=== PATIENT | female | born 1955 | race Caucasian/White ===

== ENCOUNTER → 2024-02-05 13:35 | Outpatient (REF) | payer OTHER, SELFPAY | LOC: RCS 13:35 | PROVIDERS: ATTENDING PHYSICIAN Internal Medicine Cardiovascular Disease; FAMILY PHYSICIAN Family Medicine | DX: I34.0 Nonrheumatic mitral (valve) insufficiency (principal) | CPT/HCPCS: 93306 ==

== ENCOUNTER 2024-03-10 06:08 | Day surgery (SDC) | payer OTHER, SELFPAY ==
[2024-03-10] VITALS (8 sets, daily range): BP systolic 153–180; BP diastolic 76–101; BMI 47.0
[2024-03-10 06:51] LABS: Glucose - Point of Care 101 mg/dl (70-99)
--- NOTE | 2024-03-10 08:30 | ITS.CL.PN ---
Plc Engineer - Procedure Note
Procedure
Procedure Note:
RIGHT HEART CATHETERIZATION
Date of Procedure: 03/10/2024
Referring: Dr. Michael Cerda
INDICATION: pulmonary hypertension
ACCESS: 5F right basilic vein
CATHETERS: 5F SGC
HEMODYNAMICS
RA: 21 mmHg
RV: 75/7 (EDP 21) mmHg
PA: 78/30 (mean 46) mmHg
PCWP: 27 (v-waves to 40) mmHg
CO/CI: 3.59/1.57 L/min/m2
SVR: 2006 dyn*-5
PVR: 5.3 Wood Units
RADIATION
Radiation (mGy): 22.92
DAP (cm2.Gy): 3.3704
Fluoroscopy time (minutes): 1.2
CONCLUSION:
1. 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
RECOMMENDATIONS:
1. Expectant management after right heart catheterization via brachial vein approach.
2. Medical management of heart failure and pulmonary hypertension. Consider re-evaluation of residual pHTN after adequate diuresis.
Copy to: Dr. Michael Cerda
Benjamin Kline MD, PhD
[2024-03-10 08:52] LABS: Glucose - Point of Care 93 mg/dl (70-99)
== END 2024-03-10 10:27 | disposition home or self-care (01) ==
LOC: CATH 06:08
PROVIDERS: ATTENDING PHYSICIAN Student in an Organized Health Care Education/Training Program; FAMILY PHYSICIAN Nurse Practitioner Family; OTHER PHYSICIAN Internal Medicine Cardiovascular Disease
DX: I35.0 Nonrheumatic aortic (valve) stenosis (principal); I08.3 Combined rheumatic disorders of mitral, aortic and tricuspid valves; I27.29 Other secondary pulmonary hypertension; E11.9 Type 2 diabetes mellitus without complications; Z79.01 Long term (current) use of anticoagulants; Z79.82 Long term (current) use of aspirin; Z79.84 Long term (current) use of oral hypoglycemic drugs
CPT/HCPCS: 82962; 93451; C1894

== ENCOUNTER 2024-04-03 14:05 | Inpatient (IN) | payer OTHER, SELFPAY ==
[2024-04-03] VITALS (17 sets, daily range): BP systolic 100–164; BP diastolic 69–100; PULSE 96–106; BMI 45.6; BMI 44.3
[2024-04-03 12:30] LABS: % Basophils 0.5 % (0-2); % Eosinophils 2.9 % (0-6); % Immature Granulocytes 0.7 % (0-0.5); % Monocytes 6.6 % (1.7-9.3); % Neutrophils 75.3 % (42.2-75.2); Absolute Eosinophils 0.2 10^3/uL (0-0.7); Absolute Lymphocytes 0.8 10^3/uL (1.2-3.4); Absolute Monocytes 0.4 10^3/uL (0.1-0.6); Absolute Neutrophils 4.4 10^3/uL (1.4-6.5); Hematocrit 23.9 % (37.0-47.0); Hemoglobin 7.6 g/dL (12.0-16.0); Mean Corp Hgb Conc. 31.8 g/dL (33.0-37.0); Mean Corpuscular Hgb 27.4 pg (27.0-31.0); Mean Corpuscular Volume 86.3 fL (81.0-99.0); Mean Platelet Volume 10.5 fL (7.4-10.4); Nucleated Red Blood Cells % 0 %; Platelet Count 222 10^3/uL (130-400); Red Blood Cell Count 2.77 10^6/uL (4.20-5.40); Red Cell Dist. Width 14.6 % (11.5-14.5); White Blood Cell Count 5.8 10^3/uL (4.8-10.8)
[2024-04-03 12:40] LABS: INR 2.09; PT 23.7 Sec (11.4-14.6)
[2024-04-03 12:47] LABS: ALT (SGPT) < 10 U/L (0-35); AST (SGOT) 14 U/L (14-36); Alkaline Phosphatase 39 U/L (38-126); Blood Urea Nitrogen 38 mg/dl (7-17); Calcium 9.3 mg/dl (8.4-10.2); Carbon Dioxide 24 mmol/L (22-30); Chloride 104 mmol/L (98-107); Glucose 148 mg/dl (70-99); Potassium 4.4 mmol/L (3.5-5.1); Sodium 144 mmol/L (135-145); Total Bilirubin 0.2 mg/dl (0.2-1.3); Total Protein 6.8 g/dl (6.3-8.2); eGFR 53.72
--- NOTE | 2024-04-03 12:54 | ED.GENMED ---
History of Present Illness
General
Chief Complaint: Abnormal Lab Value
Time Seen by Provider: 04/03/24 12:54
History of Present Illness
History of Present Illness:
TIME OF INITIAL ENCOUNTER:
HPI: Patient presents due to abnormal blood work. She had blood work due to reporting blood in her stool recently. Yesterday, the patient had a hemoglobin drawn and was found to be 7.8. She is on Xarelto. Otherwise, she feels fine. She thinks
that her stool was brown with streaks of blood.
EXAM:
GENERAL: Well appearing in no distress
HEENT: Moist oral mucosa
CARDIOVASCULAR: 2 out of 6 systolic ejection murmur in the left upper sternal border, normal heart rate, irregular rhythm, No chest wall tenderness
PULMONARY: No respiratory distress, breath sounds are clear and equal
ABDOMEN: Soft with no peritoneal signs, no tenderness, elevated BMI, briskly heme positive maroon to melanotic stool, no external hemorrhoids
NEUROLOGIC: Good strength all extremities, no coordination deficits
PSYCHIATRIC: Appropriate mental status, normal insight and judgement
EXTREMITIES: Nontender, no edema, moves all extremities equally
SKIN: No rash, no lesions, appears somewhat pale but did not feel that this is any significant difference
NUMBER AND COMPLEXITY OF PROBLEMS ADDRESSED AT THE ENCOUNTER
� Chronic conditions affecting care: Diabetes
� Acute Exacerbation and/or Progression of Chronic Illness: This is an acute problem
� Differential Diagnosis includes: Upper GI bleed, lower GI bleed, coagulopathy, anemia
AMOUNT AND/OR COMPLEXITY OF DATA TO BE REVIEWED AND ANALYZED
� I performed an independent evaluation of and my interpretation is:
EKG: A-fib 79, nonspecific ST abnormality
CT:
X-rays:
Laboratory Studies: White count is normal, hemoglobin is 7.6 with no old to compare, BUN is 38, creatinine 1.1
Other:
� Review of other/old records: I reviewed records, the patient had a right heart cath earlier this month that was consistent with heart failure and pulmonary hypertension; echo from 2022 showed mild aortic stenosis, mild to
moderate mitral regurgitation, and mild LVH with normal wall function. This was obtained due to persistent A-fib.
� Clinical information was obtained by an independent historian: I spoke to the at bedside
� Prescriptions/Medications Considered but not given: Considered Kcentra however the patient is currently hemodynamically stable
� Further testing considered but not performed:
RISK OF COMPLICATIONS AND/OR MORBIDITY OR MORTALITY OF PATIENT MANAGEMENT
� Social determinants of health affecting care: Lives at home
� Discussion with other providers: 1:20 PM: I notified hospitalist for admission as well as on-call GI
� Escalation of care including admission/observation vs risk of discharge considered: Given heme positive stool with rapid drop in hemoglobin, will plan admission to the hospital. Protonix IV also given.
ANY OTHER UPDATES:
1:10 PM: I spoke to a nurse over at her primary care's office who indicates that her hemoglobin on 02/12/2024 was 11.5. The patient tells me that when she was living in a little a few years ago, she had a hemoglobin of 3 and had multiple
transfusions of blood. At that time she had an abnormal endoscopy but she is not sure of what exactly happened at that time. The nurse at her current primary care office is looking through the records and trying to fax us something if they find
something.
1:20 PM: Patient signed informed consent to receive blood
Phy Exam
Physical Exam
Physical Exam:
See HPI
Course
Orders/Labs/Results
Orders:
Orders
04/03/24 12:05
Electrocardiogram (*1) Urgent
Reason for Study: Other
Other Reason for Exam: low hgb
04/03/24 12:06
EKG- Treatment ONCE
04/03/24 12:12
Type+Screen Urgent
Complete Blood Count/With Diff Urgent
Comprehensive Metabolic Panel Urgent
Ferritin Urgent
Folate Urgent
Iron Urgent
Comment: B12,FERRITIN,FOLATE,IRON ADDED ON BY FLOOR 2PM 04-03-24
PT/INR [Prothrombin Time] Urgent
Total Iron Binding Urgent
Vitamin B12 Urgent
04/03/24 13:09
Pantoprazole [Protonix IV] 80 mg IV NOW STA
04/03/24 13:11
* Blood Bank Products Urgent
Blood Bank Products: *Packed RBC Leuko(PRBC's)
Quantity: 1
Transfuse Today: Yes
Reason: Anemia
04/03/24 13:13
ABO2 Urgent
BBK Wristband Number:
Associate notified that ABO2 has been ordered: [id number]
Date: 04/03/24
Time: 12:33
Accordion Maker ID: [id number]
04/03/24 13:46
GASTROINTESTINAL CONSULT Routine
Consulting Provider: Monico Murphy
Was physician already notified: Yes
04/03/24 13:47
Admit/Transfer Patient As Directed
Co-Sign Provider:
Level of Care: Inpatient admission
Assign to:: Telemetry
Physician / Group: jose
Diagnosis: GI Bleed
Reason for Telemetry: Arrhythmia
Date to Stop Telemetry: 04/06/24
Time to Stop Telemetry: 11:00
Reason for Hospitalization: GI bleed
Expected length of stay greater than two midnights?: Yes
ELOS- Estimated Length of Stay in days: 3
I certify the patient meets the requirements for IP care: Yes
PRN Pain Medication Management As Directed
May give lesser potent ordered pain med per pt: Yes
preference::
Protocol:: Medication orders for pain may be administered in a
manner that supports deferring to patient preference
when the pt is:
- Requesting an ordered lesser potent pain medication.
Least to most potent pain medications are defined
as: acetaminophen < NSAID < tramadol < opioids
(morphine, oxycodone, hydromorphone).
- Requesting a lesser dose of the same medication IF
ORDERED.
- Requesting a less intrusive route of administration
if both routes are prescribed by the provider (PO <
IV).
04/03/24 13:48
Code Status As Directed
Resuscitation Status: Full Code
04/03/24 13:56
Add On- LAB Stat
Tests Added?: b12,ferritin, folate, iron
04/06/24 11:00
DC Protocol for Telemetry ONCE
Abnormal Lab Results
04/03/24
12:12
RBC 2.77 L 10^6/uL
(4.20-5.40)
Hgb 7.6 L g/dL
(12.0-16.0)
Hct 23.9 L %
(37.0-47.0)
MCHC 31.8 L g/dL
(33.0-37.0)
RDW 14.6 H %
(11.5-14.5)
MPV 10.5 H fL
(7.4-10.4)
Absolute Lymphs (auto) 0.8 L 10^3/uL
(1.2-3.4)
Immature Gran % 0.7 H %
(0-0.5)
Neutrophils % 75.3 H %
(42.2-75.2)
Lymphocytes % 14.0 L %
(20.5-51.1)
PT 23.7 H Sec
(11.4-14.6)
BUN 38 H mg/dl
(7-17)
Creatinine 1.1 H mg/dL
(0.6-1.0)
Glucose 148 H mg/dl
(70-99)
Crossmatch IS Only See Detail
04/03/24 12:12
04/03/24 12:12
Vital Signs
Initial and Last Documented VS:
Initial Vital Signs
Temp Pulse Resp BP Pulse Ox
98.2 F 77 16 100/75 100
04/03/24 12:01 04/03/24 12:01 04/03/24 12:01 04/03/24 12:01 04/03/24 12:01
Last Documented Vital Signs
Temp Pulse Resp BP Pulse Ox
98.2 F 71 18 135/100 100
04/03/24 14:53 04/03/24 14:53 04/03/24 14:53 04/03/24 14:53 04/03/24 12:01
*Critical Care Note
Total Time (30-74mins, 75-104mins- exclusive of procedures): Not Applicable
ED Attending Note
-
Portions of this chart may have been created with voice recognition software.� Occasional wrong word or��sound alike� substitutions may have occurred due to the inherent limitations of voice recognition software.
Discharge Plan
Departure
Patient Disposition: Admit
Date of Disposition: 04/03/24
Time of Disposition: 13:15
Presentation/result/management discussed w/ accepting MD/DO: Hospitalist
Discharge Problem:
Acute upper gastrointestinal bleeding
Interventions
Interventions:
*Risk Screen - Suicide Last Done: 04/03/24 12:01
*Neglect/Abuse Screening Last Done: 04/03/24 12:01
ED- Fall Risk Assessment Last Done: 04/03/24 13:23
*ED COVID-19 Vaccine History Last Done: 04/03/24 13:23
--- NOTE | 2024-04-03 13:16 | HPS.HSE ---
Family Physician
-
Family Physician:
Chief Complaint
-
blood in the stool
History of Present Illness
69-year-old with past medical history of hypothyroidism, type 2 diabetes, hypertension, anxiety, anemia, A-fib, and depression,pulmonary htn presented to us with patient presents due to abnormal blood work. patient stated streaks of bright blood in
the stool for past one week. she had an blood work done yesterday with impression of hgb 7.8. denied abdominal pain,n,v.d. denied dizzy, chest pain, sob. denied GORDILLO or syncopal episode. denied dysuria or hematuria. she is on Xarelto for past two
weeks. patient under lots of stress.
she was noted to have bleeding ulcer in 2019 which was cauterized back in 2019
she was also noted to have pulmonary HTN for which she was took of Valsartan and imitated on Diuretics
on arrival hgb of 7.6. giving one unit of blood as well as PPI. admitting for further management.
Medical History
Past Medical History
Past Medical History: Reports Other
Additional Past Medical History:
Hypothyroidism
Type 2 diabetes
Hypertension
Anxiety
Anemia
A-fib
Depression
Peptic ulcer disease
Past Surgical History: Reports Other
Additional Past Surgical History:
History of gastric bypass surgery
Tonsillectomy
Right total hip replacement
Cardioversion
Social History
Tobacco: Non-smoker
Alcohol: None
Drug: None
Personal:
Living: With Family
Family History
Family History: Not pertinent
Allergies / Home Medications
Allergies reflects when Allergies were last updated in [facility].
Home Medications with original date entered in [facility]
Allergy/Medication List:
Allergies
Allergy/AdvReac Type Severity Reaction Status Date / Time
erythromycin base Allergy Severe Swelling Verified 04/03/24 12:04
Home Medications
carvedilol 25 mg tablet (Coreg) 25 mg PO BID 03/10/24
cholecalciferol (vitamin D3) 50 mcg (2,000 unit) tablet (Vitamin D3) 50 mcg PO DAILY 03/10/24
hydroxyzine HCl 10 mg tablet 10 mg PO QPM 03/10/24
levothyroxine 100 mcg tablet 100 mcg PO DAILY 03/10/24
metformin 750 mg tablet,extended release 24 hr 750 mg PO DAILY 03/10/24
pantoprazole 40 mg tablet,delayed release 40 mg PO DAILY 03/10/24
rivaroxaban 20 mg tablet (Xarelto) 20 mg PO QPM 03/10/24
sertraline 100 mg tablet (Zoloft) 100 mg PO DAILY 03/10/24
acetaminophen 325 mg tablet (Tylenol) 650 mg PO QIDPRN PRN mild pain 04/03/24
cyanocobalamin (vitamin B-12) 25 mcg/actuation nasal spray 25 mcg intranasal CHADWICK 04/03/24
ergocalciferol (vitamin D2) 1,250 mcg (50,000 unit) capsule 1,250 mcg PO SA 04/03/24
ferrous sulfate 325 mg (65 mg iron) tablet 325 mg PO DAILY 04/03/24
fluticasone propionate 50 mcg/actuation nasal spray,suspension 1 spray intranasal DAILY 04/03/24
furosemide 40 mg tablet (Lasix) 40 mg PO DAILY 04/03/24
magnesium oxide 400 mg PO DAILY 04/03/24
montelukast 10 mg tablet (Singulair) 10 mg PO DAILY 04/03/24
Review of Systems
-
Constitutional: Reports No Symptoms
EENT: Reports No Symptoms
Respiratory: Reports No Symptoms
Cardiac: Reports No Symptoms
Abdomen/GI: Reports Bloody Stools
: Reports No Symptoms
Musculoskeletal: Reports No Symptoms
Skin: Reports No Symptoms
Neurological: Reports No Symptoms
Endocrine: Reports No Symptoms
Hematologic/Lymphatic: Reports No Symptoms
Psych: Reports No Symptoms
Physical Exam
Vital Signs
Vital Signs
Temp Pulse Resp BP Pulse Ox
98.2 F 77 16 100/75 100
04/03/24 12:01 04/03/24 12:01 04/03/24 12:01 04/03/24 12:01 04/03/24 12:01
Physical Exam
General: Well Developed, Well Nourished and No Apparent Distress
HEENT: NormoCephalic, Moist mucous membranes and Atraumatic
Respiratory: Clear
Cardiac: S1/S2 and Regular Rhythm; No Murmur or Rub
GI: Soft, Non Tender, Non Distended and Normal Bowel Sounds; No Organomegaly
Rectal: Deferred by Provider
Musculoskeletal: No Clubbing, No Cyanosis and No Edema
Skin: No Rash
Neuro: Nonfocal/grossly intact
Psych: Calm
Laboratory Results
-
04/03/24 12:12
04/03/24 12:12
Laboratory Results
PT 23.7 Sec (11.4-14.6) H 04/03/24 12:12
INR 2.09 04/03/24 12:12
Total Bilirubin 0.2 mg/dl (0.2-1.3) 04/03/24 12:12
AST 14 U/L (14-36) 04/03/24 12:12
ALT < 10 U/L (0-35) 04/03/24 12:12
Alkaline Phosphatase 39 U/L (38-126) 04/03/24 12:12
Data Reviewed
-
Lab Data: Labs Reviewed by me
Impression/Plan
-
# GI bleed on Xarelto
# Acute blood loss anemia
-Hemoglobin 7. 6
-IV Protonix and 1 unit of blood
-Stool heme positive
-Clear liquid diet for now, npo after MN
-GI consulted
-Hold Xarelto
# Acute kidney injury likely from blood loss anemia/GI bleed
-Creatinine 1.1
-Monitor BMP
# Permanent atrial fibrillation
-EKG with A-fib
-Coreg continued with hold parameters
#pulmonary HTN
-Lasix held
#hypothyroidism
-levothyroxine continued
#type 2 Dm
-hold metformin
-sliding scale
#depression
-Zoloft continued
#DVT prophylaxis
-scd
#CODE status
-full code
[2024-04-03] MEDS: PROTONIX IV 80 MG IV (13:20)
--- NOTE | 2024-04-03 13:56 | W.PN.UPDATE ---
Update Note
Progress Note Update
This is an addendum to the H&P written by Brook Ralph on 04/03/2024. Patient seen and examined independently with COMMUNITY EDUCATION SPECIALIST.
69-year-old female past medical history of bleeding peptic ulcer status post endoscopy in 2019 in [place], permanent atrial fibrillation on Eliquis, pulmonary hypertension, hypothyroidism, type 2 diabetes, hypertension, depression, anxiety,
presenting with anemia on outpatient labs. She has been having bright red blood in her stools for the past week.
Hemoglobin 7.6, was told her hemoglobin is previously normal. Endoscopy report was requested from primary but he did not have access to the report.
No active bleeding. Hemodynamically stable. 1 unit of blood transfusion. Clear liquid diet, n.p.o. past midnight, Protonix 40 IV twice daily, check iron studies, B12 and folate. Diet consulted. Hold Lasix which was started today for pulmonary
hypertension.
--- NOTE | 2024-04-03 14:02 | CON.GI ---
Addendum entered and electronically signed by Monico Murphy MD 04/03/24 17:00:
I saw and examined the patient.
The UTILITY WORKER WOOLEN MILL's note was reviewed and I agree with the note.
69yo with recently diagnosed pulm HTN< hx afib on Xarelto with prior cardioversion, NIDDM, hypothyroidism, depression. panic attacks, gastric bypass, prior GI bleeding 2019 with PUD with hbg 3 requiring 5 units PRBC's at that time , iron
deficiency with admission today with abnormal labs. She also report recent blood in stool. On admission hbg was 7.6 with BUN 38 was and per ER prior hbg 02/12/24 noted 11.5. ER rectal with heme + maroon to melanotic stool. In review with
patient she admits to seeing some red blood in stool last week with blood around stool. EGD 2019 with bleeding. No hx colonoscopy with cologuard x 2 neg last 2 years. No recent falls, vaginal bleeding or urinary bleeding. Denies NSAID use. Pt
on daily iron and PPI prior to admission.
-Acute on chronic anemia
-Rectal bleeding with dark stools
-Prior history of peptic ulcer disease
-History of gastric bypass surgery
-A-fib on Xarelto last dose 04/02/2024
plan
Patient is currently getting transfusion
Continue monitor H&H
Continue Protonix 40 mg twice daily
Clear liquid diet. N.p.o. after midnight
Will discuss with Dr. Unger about EGD tomorrow versus Sunday (Xarelto washout)
Patient would like to hold off on inpatient colonoscopy. She would like to have it as outpatient with Dr. Garcia
Original Note:
Consultation
-
Date/Time Consultation Requested: 04/03/24 1345
Date/Time Consultation Performed: 04/03/24 1400
Requesting Provider: Rob Montoya DO
Performing Provider: MALIKA Cifuentes, Monico Murphy MD
Reason for Consultation: anemia/bleeding
Medical History
Chief Complaint / HPI
Chief Complaint: abnormal labs
History of Present Illness:
Pt is a 69yo with hx recently dx pulm HTN, afib on Xarelto with prior cardioversion, NIDDM, hypothyroidism, depression. panic attacks, gastric bypass, prior GI bleeding 2019 with PUD with hbg 3 requiring 5 units PRBC's at that time , iron
deficiency with admission today with abnormal labs. She also report recent blood in stool. On admission hbg was 7.6 with BUN 38 was and per ER prior hbg 02/12/24 noted 11.5. ER rectal with heme + maroon to melanotic stool. In review with
patient she admits to seeing some red blood in stool last week with blood around stool. She denies dysphagia, GERD, nausea, vomiting, abdominal pain, diarrhea, constipation or black stools. EGD 2019 with bleeding. No hx colonoscopy with
cologuard x 2 neg last 2 years. No recent falls, vaginal bleeding or urinary bleeding. Denies NSAID use. Pt on daily iron and PPI prior to admission.
Past Medical History
Past Medical History: Arrhythmias (afib on Xarelto), HTN, Hypothyroidism, NIDDM, Psychiatric (anxiety/panic attacks, depression) and Other (PUD with GI bleed , iron deficiency, vitamin D deficiency, pulm HTN)
Past Surgical History: Cardiac (cardioversion), Orthopedic (right THR), Tonsilectomy and Other (gastric bypass)
Social History
Tobacco: Non-Smoker
Alcohol: None
Drug: None
Personal:
Living: With Family
Employment: Retired
Family History
Family History: Other (no family hx colon CA father with PUD)
Allergies / Home Medications
Allergy/AdvReac Type Severity Reaction Status Date / Time
erythromycin base Allergy Severe Swelling Verified 04/03/24 12:04
�Medication �Instructions �Recorded
carvedilol 25 mg tablet (Coreg) 25 mg PO BID 03/10/24
cholecalciferol (vitamin D3) 50 50 mcg PO DAILY 03/10/24
mcg (2,000 unit) tablet (Vitamin
D3)
hydroxyzine HCl 10 mg tablet 10 mg PO QPM 03/10/24
levothyroxine 100 mcg tablet 100 mcg PO DAILY 03/10/24
metformin 750 mg tablet,extended 750 mg PO DAILY 03/10/24
release 24 hr
pantoprazole 40 mg tablet,delayed 40 mg PO DAILY 03/10/24
release
rivaroxaban 20 mg tablet (Xarelto) 20 mg PO QPM 03/10/24
sertraline 100 mg tablet (Zoloft) 100 mg PO DAILY 03/10/24
acetaminophen 325 mg tablet 650 mg PO QIDPRN PRN mild pain 04/03/24
(Tylenol)
cyanocobalamin (vitamin B-12) 25 25 mcg intranasal CHADWICK 04/03/24
mcg/actuation nasal spray
ergocalciferol (vitamin D2) 1,250 1,250 mcg PO SA 04/03/24
mcg (50,000 unit) capsule
ferrous sulfate 325 mg (65 mg 325 mg PO DAILY 04/03/24
iron) tablet
fluticasone propionate 50 1 spray intranasal DAILY 04/03/24
mcg/actuation nasal
spray,suspension
furosemide 40 mg tablet (Lasix) 40 mg PO DAILY 04/03/24
magnesium oxide 400 mg PO DAILY 04/03/24
montelukast 10 mg tablet 10 mg PO DAILY 04/03/24
(Singulair)
Review of Systems
-
History Source: Patient and Family
Constitutional: Reports No Symptoms
EENT: Reports No Symptoms
Respiratory: Reports No Symptoms
Cardiac: Reports No Symptoms
Abdomen/GI: Reports Bloody Stools
: Reports No Symptoms
Musculoskeletal: Reports No Symptoms
Skin: Reports No Symptoms
Neurological: Reports Weakness
Endocrine: Reports No Symptoms
Hematologic/Lymphatic: Reports Bleeding
Vital Signs
Temp Pulse Resp BP Pulse Ox
98.2 F 76 17 142/73 100
04/03/24 12:01 04/03/24 13:30 04/03/24 13:30 04/03/24 13:22 04/03/24 12:01
Physical Exam
Exam
General: Well Developed, Well Nourished, No Apparent Distress and Other (pale appearing)
HEENT: Normocephalic and Anicteric
Respiratory: Clear
Cardiac: Regular Rhythm and Murmur
GI: Soft, Non Tender and Non Distended
Rectal: Other (heme + melena/maroon stool per ER)
Musculoskeletal: No Clubbing and No Cyanosis
Skin: Warm and Dry
Neuro: Awake, Alert and AO x 3
Psych: Calm
Results
WBC 5.8 10^3/uL (4.8-10.8) 04/03/24 12:12
Hgb 7.6 g/dL (12.0-16.0) L 04/03/24 12:12
Hct 23.9 % (37.0-47.0) L 04/03/24 12:12
MCV 86.3 fL (81.0-99.0) 04/03/24 12:12
Plt Count 222 10^3/uL (130-400) 04/03/24 12:12
Absolute Neuts (auto) 4.4 10^3/uL (1.4-6.5) 04/03/24 12:12
PT 23.7 Sec (11.4-14.6) H 04/03/24 12:12
INR 2.09 04/03/24 12:12
Sodium 144 mmol/L (135-145) 04/03/24 12:12
Potassium 4.4 mmol/L (3.5-5.1) 04/03/24 12:12
Chloride 104 mmol/L (98-107) 04/03/24 12:12
Carbon Dioxide 24 mmol/L (22-30) 04/03/24 12:12
BUN 38 mg/dl (7-17) H 04/03/24 12:12
Creatinine 1.1 mg/dL (0.6-1.0) H 04/03/24 12:12
Calcium 9.3 mg/dl (8.4-10.2) 04/03/24 12:12
Total Bilirubin 0.2 mg/dl (0.2-1.3) 04/03/24 12:12
AST 14 U/L (14-36) 04/03/24 12:12
ALT < 10 U/L (0-35) 04/03/24 12:12
Alkaline Phosphatase 39 U/L (38-126) 04/03/24 12:12
Diagnostic Image Results:
Prior GI Procedures:
EGD: 2019 PUD with bleeding
Colonoscopy: none but cologuard x 2 neg last 2 years
Assessment / Plan
-
Pt is a 69yo with recently diagnosed pulm HTN< hx afib on Xarelto with prior cardioversion, NIDDM, hypothyroidism, depression. panic attacks, gastric bypass, prior GI bleeding 2019 with PUD with hbg 3 requiring 5 units PRBC's at that time , iron
deficiency with admission today with abnormal labs. She also report recent blood in stool. On admission hbg was 7.6 with BUN 38 was and per ER prior hbg 02/12/24 noted 11.5. ER rectal with heme + maroon to melanotic stool. In review with
patient she admits to seeing some red blood in stool last week with blood around stool. EGD 2019 with bleeding. No hx colonoscopy with cologuard x 2 neg last 2 years. No recent falls, vaginal bleeding or urinary bleeding. Denies NSAID use. Pt
on daily iron and PPI prior to admission.
-rectal bleeding
-anemia with drop in hbg
-hx PUD with increased bleeding and hbg 3 in 2019
-gastric bypass
-Afib on Xarelto/prior cardioversion
-murmur on exam
-mild LOUIE on admission
-recently diagnosed pulm HTN
other med problems:
-NIDDM
-hypothyroidism
-depression
-hx panic attacks
-HTN
PLAN:
Etiology of rectal bleeding and anemia related to upper GI source- PUD, anastomotic ulcer with hx bypass, ectasia vs other
t/c EGD will review timing with Dr. Murphy
Xarelto hold- last dose 04/02 11 PM
ok for clears, NPO in AM for possible EGD
for transfusion
iron 122, ferritin TIBC and % sat pending
B12/folate pending
if needed pt prefers OP colonoscopy if able
Pt request OP scope and follow up with Dr. Maldonado as spouse is her patient
-
-
Thank you for consultation and allowing me to participate in the patient's care. Please call the electronic security specialist GI physician during the after hours with any questions or concerns.
[2024-04-03 14:32] LABS: Iron 122 ug/dl (37-170)
[2024-04-03 15:15] LABS: Percent Saturation 34 % (20-50); Total Iron Binding Capacity 355 ug/dl (265-497)
[2024-04-03 16:15] LABS: Ferritin 18.8 ng/ml (11.1-264.0)
[2024-04-03 16:47] LABS: Folate 10.5 ng/ml (2.76-20); Vitamin B12 626 pg/ml (239-931)
[2024-04-03 17:48] LABS: Glucose - Point of Care 109 mg/dl (70-99)
[2024-04-03] MEDS: ATARAX 10 MG PO (18:22)
--- NOTE | 2024-04-03 18:30 | PTCARENOTE ---
Received pt from ER.Pt awake, alert and oriented x3. Pt has no c/o pain at this time. Pt VSS 100% on RA, Pt Afib on tele. Pt oriented to room, call ramos within reach, plan of care continues.
[2024-04-03] MEDS: COREG 25 MG PO (19:54)
[2024-04-03] MEDS: PROTONIX IV 40 MG IV (19:55)
[2024-04-03] MEDS: NSS (PRESERVATIVE FREE) 10 ML IV (19:55)
[2024-04-03 20:13] LABS: Hematocrit 23.2 % (37.0-47.0); Hemoglobin 7.7 g/dL (12.0-16.0)
[2024-04-03 21:46] LABS: Glucose - Point of Care 116 mg/dl (70-99)
[2024-04-04] VITALS (11 sets, daily range): BP systolic 14–153; BP diastolic 64–78
--- NOTE | 2024-04-04 01:48 | PTCARENOTE ---
1 unit PRBCs transfused without issues. No complaints at this time. Pt resting comfortably.
[2024-04-04 04:27] LABS: Hematocrit 27.8 % (37.0-47.0); Hemoglobin 9.2 g/dL (12.0-16.0); Mean Corp Hgb Conc. 33.1 g/dL (33.0-37.0); Mean Corpuscular Hgb 28.9 pg (27.0-31.0); Mean Corpuscular Volume 87.4 fL (81.0-99.0); Mean Platelet Volume 10.7 fL (7.4-10.4); Platelet Count 211 10^3/uL (130-400); Red Blood Cell Count 3.18 10^6/uL (4.20-5.40); Red Cell Dist. Width 14.4 % (11.5-14.5); White Blood Cell Count 5.5 10^3/uL (4.8-10.8)
[2024-04-04 04:50] LABS: Blood Urea Nitrogen 33 mg/dl (7-17); Calcium 9.3 mg/dl (8.4-10.2); Carbon Dioxide 24 mmol/L (22-30); Chloride 104 mmol/L (98-107); Estimated Creatinine Clearance 69 ml/min; Glucose 109 mg/dl (70-99); Sodium 143 mmol/L (135-145); eGFR > 60.00
[2024-04-04 06:08] LABS: Glucose - Point of Care 117 mg/dl (70-99)
[2024-04-04] MEDS: SYNTHROID 100 MCG PO (06:09)
[2024-04-04] MEDS: MAGNESIUM OXIDE PO (09:27)
[2024-04-04] MEDS: ZOLOFT 100 MG PO (09:28)
[2024-04-04] MEDS: SINGULAIR 10 MG PO (09:28)
[2024-04-04] MEDS: COREG 25 MG PO ×2 (09:29→20:35)
[2024-04-04] MEDS: FEOSOL 325 MG PO (09:29)
[2024-04-04] MEDS: PROTONIX IV 40 MG IV ×2 (09:30→20:36)
[2024-04-04] MEDS: NSS (PRESERVATIVE FREE) 10 ML IV ×2 (09:30→20:36)
--- NOTE | 2024-04-04 09:38 | W.PN.HOSP.TC ---
Today's Communication/Plan
-
See PN
Assessment / Plan
Assessment / Plan
69yo F with PMHx of HTN, HFpEF with low CO and elevated pulmonary pressures on last RHC on 03/10/24. DM, Afib on Xarelto, RUSLAN, Hx of PUD with upper GIB many years ago, anxiety came with worsening anemia found on her labs and 1 week of burgundy
stools. Last dose of Xarelto - 04/02/24. Received 1 unit PRCB in ED
A/P:
#Acute blood loss anemia 2/2 GIB
PPI BID
NPO and GI consult for EGD
Avoid antiplatelets and anticoagulation
Serial H&H, two large bore IV and transfuse as needed
#DM type 2 with neuropathy
DM diet, insulin SS, accuchecks
WIll benefit from Faxiga
#Chronic HFpEF
#Asthma
#Hypothyroidism
#Afib, unspecified
cont home meds
DVT ppx with SCDs
Full code
I have spent at least 58 min reviewing chart, test results, communication with consultants and direct patient care
Anticipated Discharge: 24 - 48 hours
Subjective/Interval History
-
Date of Service: April 04, 2024
Objective Data
-
Labs:
Laboratory Results
04/04/24 04/04/24 04/04/24
04:11 04:11 04:11
WBC 5.5
Hgb Cancelled 9.2 L
Hct Cancelled 27.8 L
Plt Count 211
Sodium 143
Potassium 4.0
Chloride 104
Carbon Dioxide 24
BUN 33 H
Creatinine 1.0
Glucose 109 H
Calcium 9.3
04/04/24
12:00
WBC
Hgb Pending
Hct Pending
Plt Count
Sodium
Potassium
Chloride
Carbon Dioxide
BUN
Creatinine
Glucose
Calcium
Vital Signs:
Vital Signs
Temp Pulse Resp BP Pulse Ox
98.3 F 87 18 153/78 95
04/04/24 08:55 04/04/24 08:55 04/04/24 08:55 04/04/24 08:55 04/04/24 08:55
I&O
04/03/24 04/04/24 04/05/24
06:59 06:59 06:59
Intake Total 680 / 680
Balance 680 / 680
Review of Systems
-
History Source: Patient
All other systems: Reviewed and negative
Physical Exam
-
General: Well Developed, Well Nourished and No Apparent Distress
Cardiac: Regular Rhythm
GI: Soft, Nontender and Nondistended
Neuro: Awake, Alert, Oriented and AO x 3
Psych: Calm
[2024-04-04 10:41] LABS: Glycohemoglobin (HgbA1c) 6.1 % (4.0-5.6)
[2024-04-04 12:29] LABS: Hematocrit 27.5 % (37.0-47.0); Hemoglobin 9.1 g/dL (12.0-16.0)
--- NOTE | 2024-04-04 12:45 | PTCARENOTE ---
Pt returned from EGD. Awake,alert and oriented x3. Pt has no c/o pain VSS, Afib on tele. Reoriented to room,call ramos within reach, plan of care continues.
[2024-04-04 12:55] LABS: Glucose - Point of Care 113 mg/dl (70-99)
[2024-04-04 14:16] LABS: Reticulocyte Count 2.5 % (0.4-2.8)
[2024-04-04 14:20] LABS: LDH 139 U/L (120-246)
[2024-04-04 15:37] LABS: Folate 13.9 ng/ml (2.76-20); Vitamin B12 639 pg/ml (239-931)
[2024-04-04 17:19] LABS: Glucose - Point of Care 119 mg/dl (70-99)
[2024-04-04] MEDS: ATARAX 10 MG PO (17:52)
[2024-04-04 21:37] LABS: Glucose - Point of Care 213 mg/dl (70-99)
[2024-04-05 03:29] VITALS: BP 127/78
[2024-04-05] MEDS: SYNTHROID 100 MCG PO (05:34)
[2024-04-05 06:05] LABS: % Basophils 0.6 % (0-2); % Immature Granulocytes 0.6 % (0-0.5); % Lymphocytes 19.2 % (20.5-51.1); % Monocytes 11.7 % (1.7-9.3); % Neutrophils 63.9 % (42.2-75.2); Absolute Eosinophils 0.2 10^3/uL (0-0.7); Absolute Monocytes 0.6 10^3/uL (0.1-0.6); Absolute Neutrophils 3.3 10^3/uL (1.4-6.5); Hematocrit 27.7 % (37.0-47.0); Hemoglobin 9.1 g/dL (12.0-16.0); Mean Corp Hgb Conc. 32.9 g/dL (33.0-37.0); Mean Corpuscular Hgb 29.1 pg (27.0-31.0); Mean Corpuscular Volume 88.5 fL (81.0-99.0); Mean Platelet Volume 10.6 fL (7.4-10.4); Nucleated Red Blood Cells % 0 %; Platelet Count 205 10^3/uL (130-400); Red Blood Cell Count 3.13 10^6/uL (4.20-5.40); Red Cell Dist. Width 14.8 % (11.5-14.5); White Blood Cell Count 5.2 10^3/uL (4.8-10.8)
[2024-04-05 06:26] LABS: Blood Urea Nitrogen 28 mg/dl (7-17); Calcium 9.3 mg/dl (8.4-10.2); Carbon Dioxide 26 mmol/L (22-30); Chloride 103 mmol/L (98-107); Estimated Creatinine Clearance 63 ml/min; Glucose 111 mg/dl (70-99); Potassium 3.8 mmol/L (3.5-5.1); Sodium 143 mmol/L (135-145); eGFR 53.72
[2024-04-05 07:00] VITALS: BP 139/85
[2024-04-05 08:38] LABS: Glucose - Point of Care 115 mg/dl (70-99)
[2024-04-05] MEDS: COREG 25 MG PO ×2 (08:46→20:48)
[2024-04-05] MEDS: NSS (PRESERVATIVE FREE) 10 ML IV ×2 (08:46→20:48)
[2024-04-05] MEDS: PROTONIX IV 40 MG IV ×2 (08:46→20:49)
[2024-04-05] MEDS: SINGULAIR PO (08:47)
[2024-04-05] MEDS: ZOLOFT 100 MG PO (08:47)
[2024-04-05] MEDS: MAGNESIUM OXIDE PO (08:50)
[2024-04-05] MEDS: FEOSOL PO (08:51)
[2024-04-05 11:00] VITALS: BP 151/63
--- NOTE | 2024-04-05 11:03 | W.PN.GI.CBS2 ---
Today's Communication / Plan
-
Start two-day prep for colonoscopy, next Sunday on 04/07/24. Continue to hold a/c in preparation for colonoscopy. Rest of care as below.
Assessment / Plan
-
69yo with recently diagnosed pulm HTN< hx afib on Xarelto with prior cardioversion, NIDDM, hypothyroidism, depression. panic attacks, gastric bypass, prior GI bleeding 2019 with PUD with hbg 3 requiring 5 units PRBC's at that time , iron
deficiency with admission today with abnormal labs. She also report recent blood in stool. On admission hbg was 7.6 with BUN 38 was and per ER prior hbg 02/12/24 noted 11.5. ER rectal with heme + maroon to melanotic stool. In review with
patient she admits to seeing some red blood in stool last week with blood around stool. EGD 2019 with bleeding. No hx colonoscopy with cologuard x 2 neg last 2 years. No recent falls, vaginal bleeding or urinary bleeding. Denies NSAID use. Pt
on daily iron and PPI prior to admission.
-Acute on chronic anemia
-Rectal bleeding with dark stools
-Prior history of peptic ulcer disease
-History of gastric bypass surgery
-A-fib on Xarelto last dose 04/02/2024
S/p EGD 04/04/24: Unremarkable EGD on 04/04/2024 with pill residue in esophagus and stomach (cleared) and healthy appearing RYGB and anastomosis without any ulcerations or other fresh/old blood throughout the upper GI tract
Given ongoing intermittent bloody stools, anemia and unrevealing EGD would benefit from colonoscopy while inpatient particularly if patient is to be restarted on a/c as outpatient.
Recommendations:
- Okay for CLD
- Trend Hgb with serial CBC, transfuse for goal Hgb > 8.0
- May continue PPI 40 mg once daily
- Start two day bowel prep over weekend with Miralax prep today and tomorrow (as patient prefers lower volume prep)
- Plan for Colonoscopy next 04/07/2024
- Continue to hold a/c (last dose xarelto 04/02- )
- If brisk and/or large volume hematochezia, would obtain CTA over weekend for localization
- Rest of care per primary team
Discussed with internal medicine team this AM.
GI team will continue to follow.
Subjective
Subjective
Date of Service: April 05, 2024
- S/p EGD 04/04/24: Unremarkable EGD on 04/04/2024 with pill residue in esophagus and stomach (cleared) and healthy appearing RYGB and anastomosis without any ulcerations or other fresh/old blood throughout the upper GI tract
- Hgb remains stable
Resting comfortably in bed, had one bloody BM yesterday evening with small amount of blood. No other abdominal pain or nausea/vomiting.
Objective
Data Reviewed
Laboratory Data:
Laboratory Results
04/05/24 05:16
04/05/24 05:16
Laboratory Results
PT 23.7 Sec (11.4-14.6) H 04/03/24 12:12
INR 2.09 04/03/24 12:12
Total Bilirubin 0.2 mg/dl (0.2-1.3) 04/03/24 12:12
AST 14 U/L (14-36) 04/03/24 12:12
ALT < 10 U/L (0-35) 04/03/24 12:12
Alkaline Phosphatase 39 U/L (38-126) 04/03/24 12:12
Vital Signs and I&O:
Vital Signs
Temp Pulse Resp BP Pulse Ox
97.9 F 76 18 139/85 98
04/05/24 03:29 04/05/24 08:46 04/05/24 03:29 04/05/24 08:46 04/05/24 09:40
I&O
04/04/24 04/05/24 04/06/24
06:59 06:59 05:59
Intake Total 680 / 680 840 / 840
Balance 680 / 680 840 / 840
Physical Exam
Physical Exam
HEENT: Anicteric and Moist mucous membranes
Cardiology: Normal Sinus Rhythm
Pulmonary: Clear
GI: Soft, Non Distended and Non Tender
Extremities: No Edema
Neuro: Non Focal
[2024-04-05 13:23] LABS: Glucose - Point of Care 117 mg/dl (70-99)
--- NOTE | 2024-04-05 14:39 | W.PN.HOSP.TC ---
Today's Communication/Plan
-
prep for colonoscopy
Assessment / Plan
Assessment / Plan
69yo F with PMHx of gastric sleeve, HTN, HFpEF with low CO and elevated pulmonary pressures on last RHC on 03/10/24. DM, Afib on Xarelto, RUSLAN, Hx of PUD with upper GIB many years ago, anxiety came with worsening anemia found on her labs and 1 week of
burgundy stools. Last dose of Xarelto - 04/02/24. Received 1 unit PRCB in ED. Pending Colonoscopy on 04/07/24
A/P:
#Acute blood loss anemia 2/2 GIB
PPI BID
S/P EGD on 04/04/24 - no bleeding found. Slow prep for colonoscopy on 04/07/24
Avoid antiplatelets and anticoagulation
Serial H&H, two large bore IV and transfuse as needed
#DM type 2 with neuropathy
DM diet, insulin SS, accuchecks
WIll benefit from Faxiga
#Chronic HFpEF
#Asthma
#Hypothyroidism
#Afib, unspecified
cont home meds
DVT ppx with SCDs
Full code
I have spent at least 38 min reviewing chart, test results, communication with consultants and direct patient care
Anticipated Discharge: > 48 hours
Subjective/Interval History
-
Date of Service: April 05, 2024
Objective Data
-
Labs:
Laboratory Results
04/05/24
05:16
WBC 5.2
Hgb 9.1 L
Hct 27.7 L
Plt Count 205
Sodium 143
Potassium 3.8
Chloride 103
Carbon Dioxide 26
BUN 28 H
Creatinine 1.1 H
Glucose 111 H
Calcium 9.3
Vital Signs:
Vital Signs
Temp Pulse Resp BP Pulse Ox
97.9 F 76 18 139/85 98
04/05/24 03:29 04/05/24 08:46 04/05/24 03:29 04/05/24 08:46 04/05/24 09:40
I&O
04/04/24 04/05/24 04/06/24
06:59 06:59 05:59
Intake Total 680 / 680 840 / 840
Balance 680 / 680 840 / 840
Review of Systems
-
History Source: Patient
All other systems: Reviewed and negative
Physical Exam
-
General: No Apparent Distress
Respiratory: Clear to Auscultation
GI: Soft, Nontender and Nondistended
Neuro: Awake, Alert, Oriented and AO x 3
[2024-04-05] MEDS: GAVILAX 238 GM PO (14:55)
[2024-04-05 15:00] VITALS: BP 130/66
[2024-04-05 15:26] LABS: Glucose - Point of Care 119 mg/dl (70-99)
[2024-04-05] MEDS: ATARAX PO (17:26)
[2024-04-05 18:31] LABS: Hemoglobin 9.4 g/dL (12.0-16.0)
[2024-04-05 19:00] VITALS: BP 111/65
[2024-04-05 21:01] LABS: Glucose - Point of Care 141 mg/dl (70-99)
[2024-04-05 23:00] VITALS: BP 149/83
[2024-04-06 03:12] VITALS: BP 110/68
[2024-04-06] MEDS: SYNTHROID 100 MCG PO (06:04)
[2024-04-06 07:00] VITALS: BP 135/80
[2024-04-06 07:05] LABS: Hematocrit 30.6 % (37.0-47.0); Hemoglobin 9.9 g/dL (12.0-16.0); Mean Corp Hgb Conc. 32.4 g/dL (33.0-37.0); Mean Corpuscular Hgb 28.9 pg (27.0-31.0); Mean Corpuscular Volume 89.2 fL (81.0-99.0); Mean Platelet Volume 10.5 fL (7.4-10.4); Platelet Count 248 10^3/uL (130-400); Red Blood Cell Count 3.43 10^6/uL (4.20-5.40); Red Cell Dist. Width 14.6 % (11.5-14.5); White Blood Cell Count 6.3 10^3/uL (4.8-10.8)
[2024-04-06 07:21] LABS: Blood Urea Nitrogen 24 mg/dl (7-17); Calcium 9.7 mg/dl (8.4-10.2); Carbon Dioxide 26 mmol/L (22-30); Chloride 101 mmol/L (98-107); Estimated Creatinine Clearance 69 ml/min; Glucose 114 mg/dl (70-99); Potassium 3.9 mmol/L (3.5-5.1); Sodium 142 mmol/L (135-145); eGFR > 60.00
[2024-04-06 07:37] LABS: Glucose - Point of Care 113 mg/dl (70-99)
[2024-04-06] MEDS: FEOSOL PO (08:19)
[2024-04-06] MEDS: MAGNESIUM OXIDE PO (08:19)
[2024-04-06] MEDS: SINGULAIR PO (08:19)
[2024-04-06] MEDS: COREG 25 MG PO ×2 (08:20→21:21)
[2024-04-06] MEDS: ZOLOFT 100 MG PO (08:20)
[2024-04-06] MEDS: FLUSH (NSS) 1 FLUSH IV (08:21)
[2024-04-06] MEDS: NSS (PRESERVATIVE FREE) 10 ML IV ×2 (08:21→21:22)
[2024-04-06] MEDS: PROTONIX IV 40 MG IV ×2 (08:21→21:22)
--- NOTE | 2024-04-06 09:45 | W.PN.GI.CBS2 ---
Today's Communication / Plan
-
Continue two day prep for clean-out. Keep NPO at MN (except for prep). Still with intermittent rectal bleeding and small volume bloody stools. H/h remains stable. Plan for colonoscopy tomorrow, 04/07/2024. Rest of care as outlined below.
Assessment / Plan
-
69yo with recently diagnosed pulm HTN< hx afib on Xarelto with prior cardioversion, NIDDM, hypothyroidism, depression. panic attacks, gastric bypass, prior GI bleeding 2019 with PUD with hbg 3 requiring 5 units PRBC's at that time , iron
deficiency with admission today with abnormal labs. She also report recent blood in stool. On admission hbg was 7.6 with BUN 38 was and per ER prior hbg 02/12/24 noted 11.5. ER rectal with heme + maroon to melanotic stool. In review with
patient she admits to seeing some red blood in stool last week with blood around stool. EGD 2019 with bleeding. No hx colonoscopy with cologuard x 2 neg last 2 years. No recent falls, vaginal bleeding or urinary bleeding. Denies NSAID use. Pt
on daily iron and PPI prior to admission.
-Acute on chronic anemia
-Rectal bleeding with dark stools
-Prior history of peptic ulcer disease
-History of gastric bypass surgery
-A-fib on Xarelto last dose 04/02/2024
S/p EGD 04/04/24: Unremarkable EGD on 04/04/2024 with pill residue in esophagus and stomach (cleared) and healthy appearing RYGB and anastomosis without any ulcerations or other fresh/old blood throughout the upper GI tract
Given ongoing intermittent bloody stools, anemia and unrevealing EGD would benefit from colonoscopy. Still intermittent bloody stools with BRBPR, may be hemorrhoidal. Hgb 9.1 -> 9.4 -> 9.9
Recommendations:
- Okay for CLD, keep NPO at MN
- Trend Hgb with serial CBC, transfuse for goal Hgb > 8.0
- May continue PPI 40 mg once daily
- Continue two day bowel prep over weekend with additional Miralax prep today
- Plan for diagnostic colonoscopy tomorrow, 04/07/2024, for further evaluation of anemia and bloody stools
- Continue to hold a/c (last dose xarelto 04/02- )
- If brisk and/or large volume hematochezia, would obtain CTA over weekend for localization
- Rest of care per primary team
Discussed with internal medicine team this AM. GI team will continue to follow.
Subjective
Subjective
Date of Service: April 06, 2024
- No acute events overnight
- Hgb 9.1 -> 9.4 -> 9.9
Feeling well, resting comfortably. Drank miralax prep yesterday for two day prep. Still with intermittent bloody stools. Concerned about significant bleeding, however Hgb continues to rise. Appears to have BRBPR from what patient showed me on prior
pictures on phone. A/c remains on hold. No other abdominal pain or other nausea/vomiting. Discussed starting additional Miralax prep this afternoon.
Objective
Data Reviewed
Laboratory Data:
Laboratory Results
04/06/24 06:05
Laboratory Results
PT 23.7 Sec (11.4-14.6) H 04/03/24 12:12
INR 2.09 04/03/24 12:12
Total Bilirubin 0.2 mg/dl (0.2-1.3) 04/03/24 12:12
AST 14 U/L (14-36) 04/03/24 12:12
ALT < 10 U/L (0-35) 04/03/24 12:12
Alkaline Phosphatase 39 U/L (38-126) 04/03/24 12:12
Vital Signs and I&O:
Vital Signs
Temp Pulse Resp BP Pulse Ox
97.7 F 84 18 135/80 100
04/06/24 07:00 04/06/24 08:20 04/06/24 07:00 04/06/24 08:20 04/06/24 07:00
I&O
04/05/24 04/06/24 04/07/24
07:59 06:59 06:59
Intake Total
Balance
Physical Exam
Physical Exam
HEENT: Anicteric and Moist mucous membranes
Cardiology: Normal Sinus Rhythm
Pulmonary: Clear and Other (Normal WOB on room air)
GI: Soft, Non Distended and Non Tender
Extremities: No Edema
Neuro: Non Focal
[2024-04-06 11:00] VITALS: BP 123/87
--- NOTE | 2024-04-06 11:48 | CM ---
Met with patient and her at bedside; initial assessment completed
Pharmacy verified: [facility] @ [address], [place]
IMM benefit explained; form signed @ [id number]
Patient and live in a one floor home; 1 step to enter; bath has stall shower; grab bar and seat
PLOF: independent with ADLs; uses a cane when she ambulates outdoors only; Retired; Drives
No SNF utilization history; home PT years ago after Hip surgery in [place]
will transport home
Scheduled for colonoscopy in the morning
Plan: discharge to home when medically stable; no needs anticipated
--- NOTE | 2024-04-06 12:11 | W.PN.HOSP.TC ---
Today's Communication/Plan
-
still bloody BM
pending colonoscopy
Assessment / Plan
Assessment / Plan
69yo F with PMHx of gastric sleeve, HTN, HFpEF with low CO and elevated pulmonary pressures on last RHC on 03/10/24. DM, Afib on Xarelto, RUSLAN, Hx of PUD with upper GIB many years ago, anxiety came with worsening anemia found on her labs and 1 week of
burgundy stools. Last dose of Xarelto - 04/02/24. Received 1 unit PRCB in ED. Pending Colonoscopy on 04/07/24
A/P:
#Acute blood loss anemia 2/2 GIB
PPI BID
S/P EGD on 04/04/24 - no bleeding found. Slow prep for colonoscopy on 04/07/24
Avoid antiplatelets and anticoagulation
Serial H&H, two large bore IV and transfuse as needed
#DM type 2 with neuropathy
DM diet, insulin SS, accuchecks
WIll benefit from Faxiga
#Chronic HFpEF
#Asthma
#Hypothyroidism
#Afib, unspecified
cont home meds
DVT ppx with SCDs
Full code
I have spent at least 38 min reviewing chart, test results, communication with consultants and direct patient care
Anticipated Discharge: Within 24 hours
Subjective/Interval History
-
Date of Service: April 06, 2024
Objective Data
-
Labs:
Laboratory Results
04/06/24
06:05
WBC 6.3
Hgb 9.9 L
Hct 30.6 L
Plt Count 248 D
Sodium 142
Potassium 3.9
Chloride 101
Carbon Dioxide 26
BUN 24 H
Creatinine 1.0
Glucose 114 H
Calcium 9.7
Vital Signs:
Vital Signs
Temp Pulse Resp BP Pulse Ox
98.0 F 87 18 123/87 100
04/06/24 11:00 04/06/24 11:00 04/06/24 11:00 04/06/24 11:00 04/06/24 11:00
I&O
04/05/24 04/06/24 04/07/24
07:59 06:59 06:59
Intake Total
Balance
Review of Systems
-
History Source: Patient
All other systems: Reviewed and negative
Physical Exam
-
General: No Apparent Distress
HEENT: Normocephalic
Cardiac: Regular Rhythm
GI: Soft, Nontender and Nondistended
Neuro: Awake, Alert, Oriented and AO x 3
[2024-04-06 12:30] LABS: Glucose - Point of Care 102 mg/dl (70-99)
[2024-04-06 15:00] VITALS: BP 135/78
[2024-04-06] MEDS: GAVILAX 238 GM PO (15:57)
[2024-04-06 16:10] LABS: Glucose - Point of Care 120 mg/dl (70-99)
[2024-04-06] MEDS: ATARAX PO (16:11)
[2024-04-06 17:39] LABS: Hematocrit 29.7 % (37.0-47.0); Hemoglobin 9.8 g/dL (12.0-16.0)
[2024-04-06 19:48] VITALS: BP 124/60
[2024-04-06 20:44] LABS: Glucose - Point of Care 141 mg/dl (70-99)
[2024-04-06 23:23] VITALS: BP 122/65
[2024-04-07] VITALS (9 sets, daily range): BP systolic 16–134; BP diastolic 37–91
[2024-04-07 06:17] LABS: Glucose - Point of Care 126 mg/dl (70-99)
[2024-04-07] MEDS: SYNTHROID PO (07:44)
[2024-04-07] MEDS: COREG PO (07:45)
[2024-04-07] MEDS: FEOSOL PO (07:45)
[2024-04-07] MEDS: ZOLOFT PO (07:46)
[2024-04-07] MEDS: SINGULAIR PO (07:46)
[2024-04-07] MEDS: MAGNESIUM OXIDE PO (07:46)
[2024-04-07 08:30] LABS: Hematocrit 29.3 % (37.0-47.0); Hemoglobin 9.7 g/dL (12.0-16.0); Mean Corp Hgb Conc. 33.1 g/dL (33.0-37.0); Mean Corpuscular Hgb 28.5 pg (27.0-31.0); Mean Corpuscular Volume 86.2 fL (81.0-99.0); Mean Platelet Volume 10.7 fL (7.4-10.4); Platelet Count 271 10^3/uL (130-400); Red Cell Dist. Width 14.8 % (11.5-14.5); White Blood Cell Count 6.8 10^3/uL (4.8-10.8)
[2024-04-07] MEDS: PROTONIX IV 40 MG IV ×2 (08:31→19:59)
[2024-04-07] MEDS: NSS (PRESERVATIVE FREE) 10 ML IV ×2 (08:32→19:59)
[2024-04-07 09:05] LABS: Blood Urea Nitrogen 22 mg/dl (7-17); Calcium 9.5 mg/dl (8.4-10.2); Carbon Dioxide 25 mmol/L (22-30); Chloride 100 mmol/L (98-107); Estimated Creatinine Clearance 63 ml/min; Glucose 115 mg/dl (70-99); Potassium 3.7 mmol/L (3.5-5.1); Sodium 139 mmol/L (135-145); eGFR 53.72
--- NOTE | 2024-04-07 09:47 | W.PN.HOSP.TC ---
Today's Communication/Plan
-
Hold anticoagulation
Trend hemoglobin
Consult cardiology
Assessment / Plan
Assessment / Plan
69yo F with PMHx of gastric sleeve, HTN, HFpEF with low CO and elevated pulmonary pressures on last RHC on 03/10/24. DM, Afib on Xarelto, RUSLAN, Hx of PUD with upper GIB many years ago, anxiety came with worsening anemia found on her labs and 1 week of
burgundy stools. Last dose of Xarelto - 04/02/24. Received 1 unit PRCB in ED. Pending Colonoscopy on 04/07/24
A/P:
#Acute blood loss anemia 2/2 GIB exacerbated by Xarelto
PPI BID
S/P EGD on 04/04/24 - no bleeding found
S/P C-scope 04/07/24 -a single bleeding colonic submucosal vessel concerning for colonic Dieulafoy's lesion, treated with bipolar cautery with successful hemostsis
Appreciate GI input, continue holding anticoagulation, trend hemoglobin
#Permanent atrial fibrillation
Holding Xarelto due to GI bleed
Continue Coreg for rate control, consult cardiology
#DM type 2 with neuropathy
DM diet, insulin SS, accuchecks
Will benefit from Farxiga
#Chronic HFpEF
Lasix held, resume outpatient
#Asthma
Continue bronchodilators as needed
#Hypothyroidism
Continue levothyroxine
DVT prophylaxis�SCDs
Full code
Total time spent to see the patient on the floor, examine the patient, review data and lab results, discuss treatment plan with patient, nursing staff around 51 minutes.
Physical Exam
General: No acute distress
HEENT: Normocephalic, Atraumatic, EOMI, MMM
Respiratory: Clear to Auscultation bilaterally
Cardiac: Normal S1/S2, Regular Rate and Rhythm
GI: Soft, Nontender, Nondistended, Normal Bowel Sounds
Extremities: No Clubbing, Cyanosis, or Edema
Neuro: Nonfocal/Grossly Intact
Psych: Calm, Cooperative
Derm: No Visible lesions
Anticipated Discharge: Within 24 hours
Subjective/Interval History
-
Date of Service: April 07, 2024
Patient reports hematochezia this morning prior to her colonoscopy. It has since resolved. No abdominal pain. No nausea, no vomiting. No fever.
Objective Data
-
Labs:
Laboratory Results
04/07/24 04/07/24
06:37 17:00
WBC 6.8
Hgb 9.7 L Pending
Hct 29.3 L Pending
Plt Count 271
Sodium 139
Potassium 3.7
Chloride 100
Carbon Dioxide 25
BUN 22 H
Creatinine 1.1 H
Glucose 115 H
Calcium 9.5
Vital Signs:
Vital Signs
Temp Pulse Resp BP Pulse Ox
97.5 F 72 18 134/72 100
04/07/24 07:49 04/07/24 07:49 04/07/24 07:49 04/07/24 07:49 04/07/24 07:49
I&O
04/06/24 04/07/24 04/08/24
06:59 06:59 06:59
Intake Total 480 / 480
Balance 480 / 480
[2024-04-07 10:18] LABS: Glucose - Point of Care 119 mg/dl (70-99)
[2024-04-07 11:28] LABS: Glucose - Point of Care 106 mg/dl (70-99)
--- NOTE | 2024-04-07 14:32 | CON.CAR ---
Addendum entered and electronically signed by Nick Watson MD 04/07/24 19:15:
I saw and examined the patient.
The FUN HOUSE OPERATOR's note was reviewed and I agree with the note.
Comment: Generally we feel that Eliquis and warfarin are associated with the lowest GI bleeding of the oral anticoagulants. Moving to Eliquis is reasonable. I told the patient that her 2 GI bleeds tracy her at increased risk of repeat bleeding
regardless of the agent chosen. Case management is involved and moving to Eliquis is appropriate and my preferred approach.
Pt will followup in our office routinely. Please call with questions.
Original Note:
Consultation
Consultation Request
Date/Time Consultation Requested: 04/07/24 1400
Date/Time Consultation Performed: 04/07/24 1425
Requesting Provider: Dr. Feliciano
Performing Provider: Lianne DALY for Dr. Watson
Reason for Consultation: GIB on Xarelto for AFIB
Medical History
-
Chief Complaint: GIB
History of Present Illness:
69 y/o female with severe pulmonary hypertension, hypertension, moderate mitral regurgitation, upper GIB, and permanent AFIB on Xarelto. She was recently seen in our office (04/01/24) for post right heart cath visit (right heart cath revealed
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 Lasix was initiated. She reported blood in stool and hgb checked and low so she was sent to [facility] for further evaluation. HGB 7.6. She received 2 units PRBC's. Xarelto held. Endoscopy unrevealing. Colonoscopy today showed source of bleeding: a single bleeding colonic submucosal vessel visualized in the proximal right colon with actively
bleeding. Concerning for colonic Dieulafoy's lesion given pulsatile bleeding and submucosal lesion. Treated with bipolar cautery with successful hemostasis. We are consulted regarding choice of DOAC when okay to resume.
Past Medical History
Past Medical History: Arrhythmias, HTN, Valvular Disease and Other (upper GIB, anemia)
Social History
Tobacco: Non-Smoker
Family History
Family History: Reviewed & Not Pertinent
Allergies / Home Medications
Allergy/AdvReac Type Severity Reaction Status Date / Time
erythromycin base Allergy Severe Swelling Verified 04/03/24 12:04
�Medication �Instructions �Recorded �Confirmed �Type
carvedilol 25 mg tablet (Coreg) 25 mg PO BID Heart Failure 03/10/24 04/03/24 History
cholecalciferol (vitamin D3) 50 50 mcg PO DAILY Supplement 03/10/24 04/03/24 History
mcg (2,000 unit) tablet (Vitamin
D3)
hydroxyzine HCl 10 mg tablet 10 mg PO QPM Mental Health/Anxiety 03/10/24 04/03/24 History
levothyroxine 100 mcg tablet 100 mcg PO DAILY Thyroid 03/10/24 04/03/24 History
metformin 750 mg tablet,extended 750 mg PO DAILY Diabetes 03/10/24 04/03/24 History
release 24 hr
pantoprazole 40 mg tablet,delayed 40 mg PO DAILY Gastrointestinal 03/10/24 04/03/24 History
release Issue
rivaroxaban 20 mg tablet (Xarelto) 20 mg PO QPM Blood Clot 03/10/24 04/03/24 History
Prevention/Tx
sertraline 100 mg tablet (Zoloft) 100 mg PO DAILY Depression 03/10/24 04/03/24 History
acetaminophen 325 mg tablet 650 mg PO QIDPRN PRN mild pain 04/03/24 04/03/24 History
(Tylenol)
cyanocobalamin (vitamin B-12) 25 25 mcg intranasal [place] Supplement 04/03/24 04/03/24 History
mcg/actuation nasal spray
ergocalciferol (vitamin D2) 1,250 1,250 mcg PO SA Supplement 04/03/24 04/03/24 History
mcg (50,000 unit) capsule
ferrous sulfate 325 mg (65 mg 325 mg PO DAILY Supplement 04/03/24 04/03/24 History
iron) tablet
fluticasone propionate 50 1 spray intranasal DAILY Allergies 04/03/24 04/03/24 History
mcg/actuation nasal
spray,suspension
furosemide 40 mg tablet (Lasix) 40 mg PO DAILY Fluid 04/03/24 04/03/24 History
Retention/Swelling
magnesium oxide 400 mg PO DAILY Supplement 04/03/24 04/03/24 History
montelukast 10 mg tablet 10 mg PO DAILY Allergies 04/03/24 04/03/24 History
(Singulair)
Review of Systems
-
History Source: Patient
All other systems: Negative unless noted
Abdomen/GI: Bloody Stools
Physical Exam
Vital Signs
Temp Pulse Resp BP Pulse Ox
97.8 F 83 16 124/74 100
04/07/24 11:18 04/07/24 11:18 04/07/24 11:18 04/07/24 11:18 04/07/24 11:18
Lab Results
04/07/24 06:37
Physical Exam
General: Well Developed, Well Nourished and No Apparent Distress
HEENT: Normocephalic and Anicteric
Respiratory: Non Labored Respirations
Cardiac: Irregular Rhythm
Musculoskeletal: No Edema
Skin: Warm and Dry
Neuro: AO x 3
Psych: Calm
Impression / Plan
-
Anemia, GIB:
-s/p 2 units PRBC's
-a single bleeding colonic submucosal vessel visualized in the proximal right colon with actively bleeding. Concerning for colonic Dieulafoy's lesion given pulsatile bleeding and submucosal lesion. Treated with bipolar cautery with successful
hemostasis.
-OAC held- see below
Permanent AFIB:
-rate-controlled- continue Coreg
-[id number] score is 5 for age, female, HTN, CHF, DM. She was on Xarelto, but should go on Eliquis (5 mg PO BID) moving forward now with GIB as noted (less risk for GIB on Eliquis). Per GI, awaiting 48 more hours until resumption. Will c/s CM to
ensure it is affordable.
HTN:
-stable
Chronic HFpEF:
-based on recent right heart cath
-no SOB or edema
-lasix started as OP
Data Reviewed
-
EKG: Tracing Personally Visualized and interpreted (AFIB 79 BPM)
Medical Tests (Nuc Med, Echo etc): Report Reviewed by me (Echo 02/05/24: EF 55-60%. Stage III DD. Normal RV size with mildly reduced function. Severe biatrial dilation. Mild/moderate posterior MAC. Moderate MR. Thickened AV with restricted leaflet
motion and mild . At least moderate TR. IVC is moderately dilated with blunted respiratory variation. Severe p) and Other (recent right heart cath with results as above)
Labs: Labs Reviewed by me
--- NOTE | 2024-04-07 15:21 | CM ---
CM reviewed chart, met with patient bedside. Patient reports no needs to CM at this time, reports she may be starting Eliquis. CM will check pricing of medication if needed. Patient , pharmacy benefit phone number
. CM will continue to follow for all discharge planning needs.
Plan; home no needs likely.
[2024-04-07 16:34] LABS: Glucose - Point of Care 102 mg/dl (70-99)
--- NOTE | 2024-04-07 16:43 | CM ---
CM asked to check cost for Eliquis 5 mg PO Bid.
TC to [facility] [phone] transferred 4 times, spoke with Mahnaz.
Per Mahnaz they can only give and estimate of wheat costs will be do to medication conflicts.
30 day supply will be estimated at $30 and 90 day supply $90.
Cardiology PA updated.
[2024-04-07] MEDS: COREG 25 MG PO (19:58)
[2024-04-07 21:09] LABS: Glucose - Point of Care 154 mg/dl (70-99)
[2024-04-07] MEDS: ATARAX 10 MG PO (22:26)
[2024-04-08 03:09] VITALS: BP 149/60
--- NOTE | 2024-04-08 05:46 | W.PN.GI.CBS2 ---
Today's Communication / Plan
-
No signs of recurrent GI bleeding. Favor restarting a/c tomorrow evening if being switched to apixaban. Recommend outpatient f/u with GI for repeat colonoscopy in 6-12 months for screening purposes. Rest of care as outlined below. GI will sign-off,
please call with any questions or concerns.
Assessment / Plan
-
69yo with recently diagnosed pulm HTN< hx afib on Xarelto with prior cardioversion, NIDDM, hypothyroidism, depression. panic attacks, gastric bypass, prior GI bleeding 2019 with PUD with hbg 3 requiring 5 units PRBC's at that time , iron
deficiency with admission today with abnormal labs. She also report recent blood in stool. On admission hbg was 7.6 with BUN 38 was and per ER prior hbg 02/12/24 noted 11.5. ER rectal with heme + maroon to melanotic stool. In review with
patient she admits to seeing some red blood in stool last week with blood around stool. EGD 2019 with bleeding. No hx colonoscopy with cologuard x 2 neg last 2 years. No recent falls, vaginal bleeding or urinary bleeding. Denies NSAID use. Pt
on daily iron and PPI prior to admission.
-Acute on chronic anemia
-Rectal bleeding with dark stools
-Prior history of peptic ulcer disease
-History of gastric bypass surgery
-A-fib on Xarelto last dose 04/02/2024
S/p EGD 04/04/24: Unremarkable EGD on 04/04/2024 with pill residue in esophagus and stomach (cleared) and healthy appearing RYGB and anastomosis without any ulcerations or other fresh/old blood throughout the upper GI tract
- S/p Colonoscopy 04/08/2024: Copious amount of fresh red blood and blood clots throughout the colon, normal ileum (advanced an additional 25-30 cms) without any fresh/old blood, found to have a colonic Dieulafoy's lesion with active, pulsatile
bleeding in the proximal R colon, treated with bicap with successful hemostasis, tattooed adjacent area for marking if re-bleeding; otherwise the exam was normal without any bleeding large polyps, masses, internal/external hemorrhoids,
diverticulosis, AVMs, or endoscopic signs of inflammation
Since her colonoscopy, H/h remains stable without any further bloody stools.
Recommendations:
- Diet as tolerated
- Trend Hgb with serial CBC, transfuse for goal Hgb > 8.0
- May continue PPI 40 mg once daily given RYGB
- Favor restarting a/c in 48 hrs from procedure, may resume tomorrow evening if being switched to Apixaban
- Advised f/u with me as an outpatient for consideration of repeat colonoscopy given suboptimal prep for screening purposes in 6 to 12 months (as this was her first colonoscopy)
- Strict avoidance of all NSAIDs
- Rest of care per primary team
Discussed with internal medicine team this AM. GI will sign-off, please call with any questions or concerns.
Subjective
Subjective
Date of Service: April 08, 2024
- S/p Colonoscopy 04/08/2024: Copious amount of fresh red blood and blood clots throughout the colon, normal ileum (advanced an additional 25-30 cms) without any fresh/old blood, found to have a colonic Dieulafoy's lesion with active, pulsatile
bleeding in the proximal R colon, treated with bicap with successful hemostasis, tattooed adjacent area for marking if re-bleeding; otherwise the exam was normal without any bleeding large polyps, masses, internal/external hemorrhoids,
diverticulosis, AVMs, or endoscopic signs of inflammation
- Cardiology consulted, considering switching to Eliquis given reduced GI bleeding
- Otherwise, no acute events overnight
Feeling well, resting comfortably without any bloody stools since her colonoscopy. No abdominal pain or discomfort. Discussed findings of recent colonoscopy.
Objective
Data Reviewed
Laboratory Data:
Laboratory Results
PT 23.7 Sec (11.4-14.6) H 04/03/24 12:12
INR 2.09 04/03/24 12:12
Total Bilirubin 0.2 mg/dl (0.2-1.3) 04/03/24 12:12
AST 14 U/L (14-36) 04/03/24 12:12
ALT < 10 U/L (0-35) 04/03/24 12:12
Alkaline Phosphatase 39 U/L (38-126) 04/03/24 12:12
Vital Signs and I&O:
Vital Signs
Temp Pulse Resp BP Pulse Ox
98.1 F 81 18 149/60 97
04/08/24 03:09 04/08/24 03:09 04/08/24 03:09 04/08/24 03:09 04/08/24 03:09
I&O
04/06/24 04/07/24 04/08/24
06:59 06:59 06:59
Intake Total 480 / 480 960 / 960
Balance 480 / 480 960 / 960
Physical Exam
Physical Exam
HEENT: Anicteric and Moist mucous membranes
Cardiology: Normal Sinus Rhythm
Pulmonary: Clear
GI: Soft, Non Distended and Non Tender
Extremities: No Edema
Neuro: Non Focal
[2024-04-08] MEDS: SYNTHROID 100 MCG PO (05:53)
[2024-04-08 06:00] VITALS: BMI 43.8
[2024-04-08 07:07] LABS: Glucose - Point of Care 116 mg/dl (70-99)
[2024-04-08 07:49] VITALS: BP 111/85
--- NOTE | 2024-04-08 07:49 | W.PN.HOSP.TC ---
Today's Communication/Plan
-
Discharge today
Assessment / Plan
Assessment / Plan
69yo F with PMHx of gastric sleeve, HTN, HFpEF with low CO and elevated pulmonary pressures on last RHC on 03/10/24. DM, Afib on Xarelto, RUSLAN, Hx of PUD with upper GIB many years ago, anxiety came with worsening anemia found on her labs and 1 week of
burgundy stools. Last dose of Xarelto - 04/02/24. Received 1 unit PRCB in ED. Pending Colonoscopy on 04/07/24
A/P:
#Acute blood loss anemia 2/2 GIB exacerbated by Xarelto
PPI BID
S/P EGD on 04/04/24 - no bleeding found
S/P C-scope 04/07/24 -a single bleeding colonic submucosal vessel concerning for colonic Dieulafoy's lesion, treated with bipolar cautery with successful hemostasis
Appreciate GI input, recommend holding anticoagulation for 48 hours post procedure
No more recurrence of hematochezia, hemoglobin 9.7 today, was 9.7 yesterday
Patient would like to change to Eliquis, may start Eliquis 5 mg twice a day on 04/09 evening
Medically stable for discharge, follow-up with GI in the office
#Permanent atrial fibrillation
Holding Xarelto due to GI bleed
Continue Coreg for rate control
Will change to Eliquis upon discharge
#DM type 2 with neuropathy
DM diet, insulin SS, accuchecks
#Chronic HFpEF
Lasix held, resume upon discharge
#Asthma
Continue bronchodilators as needed
#Hypothyroidism
Continue levothyroxine
#Obesity due to excess calories
Affects all aspects of care
DVT prophylaxis�SCDs
Full code
Physical Exam
General: No acute distress
HEENT: Normocephalic, Atraumatic, EOMI, MMM
Respiratory: Clear to Auscultation bilaterally
Cardiac: Normal S1/S2, Regular Rate and Rhythm
GI: Soft, Nontender, Nondistended, Normal Bowel Sounds
Extremities: No Clubbing, Cyanosis, or Edema
Neuro: Nonfocal/Grossly Intact
Psych: Calm, Cooperative
Derm: No Visible lesions
Anticipated Discharge: Today
Subjective/Interval History
-
Date of Service: April 08, 2024
No more gross rectal bleeding. She had a speck of blood while having gas. No abdominal pain, no vomiting. No fever. Patient feels well, and is eager for discharge today.
Objective Data
-
Labs:
Laboratory Results
04/08/24
07:37
WBC Pending
Hgb Pending
Hct Pending
Plt Count Pending
Sodium Pending
Potassium Pending
Chloride Pending
Carbon Dioxide Pending
BUN Pending
Creatinine Pending
Glucose Pending
Calcium Pending
Vital Signs:
Vital Signs
Temp Pulse Resp BP Pulse Ox
98.1 F 81 18 149/60 97
04/08/24 03:09 04/08/24 03:09 04/08/24 03:09 04/08/24 03:09 04/08/24 03:09
I&O
04/07/24 04/08/24 04/09/24
06:59 06:59 06:59
Intake Total 480 / 480 1440 / 1440
Balance 480 / 480 1440 / 1440
[2024-04-08] MEDS: ZOLOFT 100 MG PO (08:18)
[2024-04-08] MEDS: FEOSOL 325 MG PO (08:18)
[2024-04-08] MEDS: PROTONIX IV 40 MG IV (08:18)
[2024-04-08] MEDS: SINGULAIR 10 MG PO (08:18)
[2024-04-08] MEDS: NSS (PRESERVATIVE FREE) 10 ML IV (08:18)
[2024-04-08] MEDS: MAGNESIUM OXIDE 500 MG PO (08:18)
[2024-04-08] MEDS: COREG 25 MG PO (08:19)
[2024-04-08 08:23] LABS: Hematocrit 30.2 % (37.0-47.0); Hemoglobin 9.7 g/dL (12.0-16.0); Mean Corp Hgb Conc. 32.1 g/dL (33.0-37.0); Mean Corpuscular Hgb 28.6 pg (27.0-31.0); Mean Corpuscular Volume 89.1 fL (81.0-99.0); Mean Platelet Volume 10.6 fL (7.4-10.4); Platelet Count 242 10^3/uL (130-400); Red Blood Cell Count 3.39 10^6/uL (4.20-5.40); Red Cell Dist. Width 14.6 % (11.5-14.5); White Blood Cell Count 8.3 10^3/uL (4.8-10.8)
[2024-04-08 09:02] LABS: Blood Urea Nitrogen 24 mg/dl (7-17); Calcium 9.4 mg/dl (8.4-10.2); Carbon Dioxide 24 mmol/L (22-30); Chloride 101 mmol/L (98-107); Estimated Creatinine Clearance 63 ml/min; Glucose 109 mg/dl (70-99); Potassium 3.8 mmol/L (3.5-5.1); Sodium 142 mmol/L (135-145); eGFR 53.72
--- NOTE | 2024-04-08 11:09 | W.DCSUMMARY ---
Discharge Summary
Discharge Data
Date of Admission: 04/03/24
Date of Discharge: 04/08/24
-
Pending Results: No
Hospital Course
Discharge diagnosis:
Acute blood loss anemia
Gastrointestinal bleed from bleeding colonic vessel exacerbated by Xarelto
Permanent atrial fibrillation on anticoagulation
Type 2 diabetes with neuropathy
Chronic heart failure with a preserved ejection fraction
Asthma
Hypothyroidism
Obesity due to excess calories
Consults: GI, cardiology
Procedures:
S/P EGD on 04/04/24 - no bleeding found
S/P C-scope 04/07/24 -a single bleeding colonic submucosal vessel concerning for colonic Dieulafoy's lesion, treated with bipolar cautery with successful hemostasis
Hospital course:
69-year-old female with a past medical history of severe pulmonary hypertension, permanent atrial fibrillation on Xarelto, hypertension, CHF, mitral regurgitation, and upper GI bleed who presented with abnormal hemoglobin of 7.8, and was found to
have hematochezia.
Patient's Xarelto was held. She was seen in conjunction with GI, and had endoscopy and colonoscopy. Colonoscopy found a single bleeding submucosal vessel concerning for colonic Dieulafoy's lesion, this was treated with bipolar cautery with
successful hemostasis. GI recommends holding anticoagulation 48 hours postprocedure.
Patient had acute blood loss anemia. Her hemoglobin was 7.6 upon admission, and improved to 9.2 after receiving 2 units of packed red blood cells. Her hemoglobin was trended, and remained stable at 9.7 on the day of discharge.
Patient requested to see cardiology to discuss changing from Xarelto to Eliquis. Cardiology states that Eliquis is associated with decreased risk of GI bleed. She will be changed to Eliquis 5 mg twice a day upon discharge. She has been instructed
to start taking her Eliquis on the evening of 04/09/2024. She has also been instructed to hold her Eliquis should she have any more black or bloody stools.
Patient is medically stable for discharge. She needs to follow-up with cardiology in the office in 2-3 weeks, GI in the office in 3-4 weeks, and her primary care doctor in 1 week.
Disposition: Home self-care
Discharge planning: Required 40 minutes
Discharge Plan
-
Patient Disposition: Home (Routine Discharge)
Discharge Diagnosis/Procedures: Acute blood loss anemia secondary to gastrointestinal bleed exacerbated by Xarelto, permanent atrial fibrillation
Condition: Good
Diet: Low Fat, Low Cholesterol and Diabetic, Carb Controlled
Activity: As tolerated
Driving Restrictions: As prior to admission
Activity Restrictions/Additional Instructions:
You may start Eliquis 5 mg twice a day on 04/09/2024 evening.
Stop taking Eliquis if you have any more black or bloody stools.
Recommend you take your iron supplement at night with vitamin C for better absorption.
Follow-up with your primary care doctor in 1 week, and your usual editorial clerk in 2-3 weeks.
Referrals:
Doris Tripp CRNP [Family Provider] - in one week
Evan Unger DO [Active] - in three to four weeks
Prescriptions:
New
ascorbic acid (vitamin C) [Vitamin C] 500 mg tablet
500 mg PO HS Qty: 30 0RF
Eliquis 5 mg tablet
5 mg PO BID 30 Days Qty: 60 0RF
Continued
carvedilol [Coreg] 25 mg Tablet
25 mg PO BID
sertraline [Zoloft] 100 mg Tablet
100 mg PO DAILY
levothyroxine 100 mcg Tablet
100 mcg PO DAILY
pantoprazole 40 mg Tablet,Delayed Release (Dr/Ec)
40 mg PO DAILY
hydroxyzine HCl 10 mg Tablet
10 mg PO QPM
metformin 750 mg Tablet Extended Release 24 Hr
750 mg PO DAILY
cholecalciferol (vitamin D3) [Vitamin D3] 50 mcg (2,000 unit) Tablet
50 mcg PO DAILY
furosemide [Lasix] 40 mg Tablet
40 mg PO DAILY
acetaminophen [Tylenol] 325 mg Tablet
650 mg PO QIDPRN PRN (Reason: mild pain)
montelukast [Singulair] 10 mg Tablet
10 mg PO DAILY
ergocalciferol (vitamin D2) 1,250 mcg (50,000 unit) Capsule
1,250 mcg PO SA
fluticasone propionate 50 mcg/actuation [place],Suspension
1 spray INTRANASAL DAILY
cyanocobalamin (vitamin B-12) 25 mcg/actuation [place],Non-Aerosol
25 mcg INTRANASAL [place]
magnesium oxide 400 mg magnesium Tablet
400 mg PO DAILY
Changed
ferrous sulfate 325 mg (65 mg iron) Tablet
325 mg PO HS Qty: 0 0RF
Discontinued
Xarelto 20 mg Tablet
20 mg PO QPM
Discharge Orders:
Discharge Patient (As Directed); Ordered 04/08/24
Ordered By: Martinez Feliciano
Discharge Date and Time
Discharge Date/Time: 04/08/24 12:21
Print Language: ROMANIAN
--- NOTE | 2024-04-08 11:30 | CM ---
CM following re: discharge planning.
Reviewed pt's chart, met with pt and pt's at bedside.
Per CM note, Eliquis [facility] checked: $30.00 for 30 days supply and $90 days for 90 days supply. CM provided that information to the pt and 30 days free coupon for Eliquis provided.
Discharge order noted. Both pt and her spouse are aware, expressed their agreement and spouse stated he will transport his spouse home. IMM reviewed, placed on chart, pt has a copy.
Pt described herself as independent in all areas [place], lives with who is very supportive, has no children.
D/C plan: home no needs. to transport.
[2024-04-08 11:36] VITALS: BP 110/63
--- NOTE | 2024-04-08 12:31 | PTCARENOTE ---
Call placed to pt's cell phone, instructed to follow up with Dr. Unger as outpatient. Pt verbalized understanding.
--- NOTE | 2024-04-08 12:59 | PN.CDI ---
CDI
- -
CDI:
Physician Documentation Request
Admit Date: 04/03/24 14:05
Dear Doctor Do,
Please review the following and provide your response in the progress notes.
Clinical Indicators:
Height: 5 ft 6 inches
Weight: 274
BMI:44.3
Other Clinical Notes: 04/04 note 'Weight-274 lbs 2 oz (-, BMI 44.3-obese)'
If possible, please provide an associated diagnosis related to the abnormal BMI, such as:
BMI > or = to 40
Overweight
Obesity:
Due to excess calories
Drug induced
Due to other cause
Severe or morbid obesity:
With alveolar hypoventilation (Obesity hypoventilation syndrome)
Without alveolar hypoventilation
- BMI is not significant
- Other
Use of terms such as suspected, likely, concern for, or probable (associated with a specific diagnosis that is being evaluated, monitored, or treated as if it exists) are acceptable and can be coded in the inpatient setting, when documented at the
time of discharge.
Thank you,
Winnie Dinh RN, BSN
CDI Specialist
tiger text
Please use your independent medical judgment in providing your response.
== END 2024-04-08 12:21 | disposition home or self-care (01) | DRG 394 ==
LOC: 4 WEST ACU 14:05
PROVIDERS: Emergency Medicine; Internal Medicine; Registered Nurse; Student in an Organized Health Care Education/Training Program; ADMITTING PHYSICIAN Hospitalist; ATTENDING PHYSICIAN Family Medicine; CONSULT PHYSICIAN Internal Medicine Cardiovascular Disease; CONSULT PHYSICIAN Internal Medicine Gastroenterology; EMERGENCY PHYSICIAN Emergency Medicine; FAMILY PHYSICIAN Nurse Practitioner Family
PROC: 30233N1 Transfusion of Nonautologous Red Blood Cells into Peripheral Vein, Percutaneous Approach (ICD-10-PCS; 2024-04-03)
PROC: 0DJ08ZZ Inspection of Upper Intestinal Tract, Via Natural or Artificial Opening Endoscopic (ICD-10-PCS; 2024-04-04)
PROC: 0W3P8ZZ Control Bleeding in Gastrointestinal Tract, Via Natural or Artificial Opening Endoscopic (ICD-10-PCS; 2024-04-07)
PROC: 3E0H8GC Introduction of Other Therapeutic Substance into Lower GI, Via Natural or Artificial Opening Endoscopic (ICD-10-PCS; 2024-04-07)
DX: K63.81 Dieulafoy lesion of intestine (principal); D62 Acute posthemorrhagic anemia; I50.32 Chronic diastolic (congestive) heart failure; I48.21 Permanent atrial fibrillation; D68.32 Hemorrhagic disorder due to extrinsic circulating anticoagulants; N17.9 Acute kidney failure, unspecified; K92.2 Gastrointestinal hemorrhage, unspecified; Z68.41 Body mass index [BMI] 40.0-44.9, adult; E11.40 Type 2 diabetes mellitus with diabetic neuropathy, unspecified; E03.9 Hypothyroidism, unspecified; I11.0 Hypertensive heart disease with heart failure; F41.9 Anxiety disorder, unspecified; F32.A Depression, unspecified; T45.515A Adverse effect of anticoagulants, initial encounter; I27.29 Other secondary pulmonary hypertension; F41.0 Panic disorder [episodic paroxysmal anxiety]; E66.09 Other obesity due to excess calories; I34.0 Nonrheumatic mitral (valve) insufficiency; J45.909 Unspecified asthma, uncomplicated; Z87.11 Personal history of peptic ulcer disease; Z98.84 Bariatric surgery status; Z79.890 Hormone replacement therapy; Z79.84 Long term (current) use of oral hypoglycemic drugs; Z79.01 Long term (current) use of anticoagulants; Z88.1 Allergy status to other antibiotic agents
CPT/HCPCS: 80048; 80053; 82607; 82728; 82746; 82962; 83036; 83540; 83550; 83615; 85014; 85018; 85025; 85027; 85045; 85610; 86850; 86900; 86901; 86920; 93005; 96374; 99285; P9016

== ENCOUNTER 2024-10-30 12:08 | Emergency (ER) | payer OTHER, SELFPAY ==
[2024-10-30 12:09] VITALS: BP 132/93
--- NOTE | 2024-10-30 13:29 | ED.GENMED ---
History of Present Illness
General
Chief Complaint: Fall
Source: patient
Exam Limitations: none
Time Seen by Provider: 10/30/24 12:38
Nursing documentation reviewed up to this point in time: agreed with
History of Present Illness
History of Present Illness:
69 y/o F R hand dominant afib on eluis
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
landed on her L wrist
no head strike, no back/neck pain, no hip pain
has pain in her L wrist, ilimited mobility
no numbness/tingling/weakess
has not seen ortho in this area
no meds taken prior
Past History
Past History
ED Past Medical History: Arrthythmia and HTN
Social History
Tobacco: Non-smoker
Review of Systems
Review of Systems
Allergies reviewed?: Yes
All Other Systems: Not applicable
Phy Exam
Physical Exam
Physical Exam:
Of your GENERAL: Alert , in no apparent distress
EYE: pupils equal and reactive
NECK: Supple
ENT: o/p clr, mmm.
CARDIAC: Regular rate and rhythm .
LUNGS: Clear breath sounds bilaterally, no acute respiratory distress, no wheezes/rales/rhonchi
ABDOMEN: Soft, without focal tenderness, no r/g, no cvat, normal bowel sounds
NEUROLOGICAL: Alert and oriented, no focal neuro deficits,
SKIN: Warm and dry, skin intact.
MUSCULOSKELETAL: No edema, well perfused. neg nichole's sign
PSYCH: Normal and appropriate interaction.
Course
Orders/Labs/Results
Orders:
Orders
10/30/24 12:13
Wrist, Left 3 Views CR [CR Wrist - Left Min 3 Views] Urgent
Comment:
Reason For Exam: left wrist pain fell today
10/30/24 13:37
CT Upper Ext W/o Iv Cont Lt Urgent
Comment:
Reason For Exam: L wrist fracture, requested by ortho after pt spli
10/30/24 13:38
Acetaminophen [Tylenol] 1,000 mg PO NOW STA
Vital Signs
Initial and Last Documented VS:
Initial Vital Signs
Temp Pulse Resp BP Pulse Ox
36.5 C 74 16 132/93 98
10/30/24 12:09 10/30/24 12:09 10/30/24 12:10/30/24 12:09 10/30/24 12:09
Last Documented Vital Signs
Temp Pulse Resp BP Pulse Ox
36.5 C 74 16 132/93 98
10/30/24 12:09 10/30/24 12:09 10/30/24 12:10/30/24 12:09 10/30/24 12:09
ED Attending Note
-
Portions of this chart may have been created with voice recognition software.� Occasional wrong word or��sound alike� substitutions may have occurred due to the inherent limitations of voice recognition software.
Discharge Plan
Departure
Prescriptions:
No Action
carvedilol [Coreg] 25 mg Tablet
25 mg PO BID
sertraline [Zoloft] 100 mg Tablet
100 mg PO DAILY
levothyroxine 100 mcg Tablet
100 mcg PO DAILY
pantoprazole 40 mg Tablet,Delayed Release (Dr/Ec)
40 mg PO DAILY
hydroxyzine HCl 10 mg Tablet
10 mg PO QPM
metformin 750 mg Tablet Extended Release 24 Hr
750 mg PO DAILY
cholecalciferol (vitamin D3) [Vitamin D3] 50 mcg (2,000 unit) Tablet
50 mcg PO DAILY
furosemide [Lasix] 40 mg Tablet
40 mg PO DAILY
acetaminophen [Tylenol] 325 mg Tablet
650 mg PO QIDPRN PRN (Reason: mild pain)
montelukast [Singulair] 10 mg Tablet
10 mg PO DAILY
ergocalciferol (vitamin D2) 1,250 mcg (50,000 unit) Capsule
1,250 mcg PO SA
fluticasone propionate 50 mcg/actuation [place],Suspension
1 spray INTRANASAL DAILY
cyanocobalamin (vitamin B-12) 25 mcg/actuation [place],Non-Aerosol
25 mcg INTRANASAL [place]
magnesium oxide 400 mg magnesium Tablet
400 mg PO DAILY
ascorbic acid (vitamin C) [Vitamin C] 500 mg tablet
500 mg PO HS Qty: 30 0RF
Eliquis 5 mg tablet
5 mg PO BID 30 Days Qty: 60 0RF
ferrous sulfate 325 mg (65 mg iron) Tablet
325 mg PO HS Qty: 0 0RF
Interventions
Interventions:
*Risk Screen - Suicide Last Done: 10/30/24 12:09
*Neglect/Abuse Screening Last Done: 10/30/24 12:09
Discharge Date and Time
Print Language: FRENCH
[2024-10-30] MEDS: TYLENOL 1000 MG PO (13:49)
== END 2024-10-30 15:23 | disposition home or self-care (01) ==
LOC: EMR 12:08
PROVIDERS: EMERGENCY PHYSICIAN Student in an Organized Health Care Education/Training Program
DX: S52.592A Other fractures of lower end of left radius, initial encounter for closed fracture (principal); W19.XXXA Unspecified fall, initial encounter; I48.91 Unspecified atrial fibrillation; I10 Essential (primary) hypertension; Z79.02 Long term (current) use of antithrombotics/antiplatelets
CPT/HCPCS: 99284; 73110; 73200

== ENCOUNTER 2024-11-05 06:37 | Day surgery (SDC) | payer OTHER, SELFPAY ==
[2024-11-04 13:56] LABS: % Basophils 0.4 % (0-2); % Eosinophils 2.9 % (0-6); % Immature Granulocytes 0.4 % (0-0.5); % Lymphocytes 14.2 % (20.5-51.1); % Monocytes 6.1 % (1.7-9.3); Absolute Eosinophils 0.2 10^3/uL (0-0.7); Absolute Monocytes 0.4 10^3/uL (0.1-0.6); Absolute Neutrophils 5.2 10^3/uL (1.4-6.5); Hematocrit 36.8 % (37.0-47.0); Hemoglobin 11.7 g/dL (12.0-16.0); Mean Corp Hgb Conc. 31.8 g/dL (33.0-37.0); Mean Corpuscular Hgb 28.1 pg (27.0-31.0); Mean Corpuscular Volume 88.5 fL (81.0-99.0); Mean Platelet Volume 10.9 fL (7.4-10.4); Nucleated Red Blood Cells % 0 %; Platelet Count 240 10^3/uL (130-400); Red Blood Cell Count 4.16 10^6/uL (4.20-5.40); White Blood Cell Count 6.8 10^3/uL (4.8-10.8)
[2024-11-04 14:02] VITALS: BMI 48.3
[2024-11-04 14:45] LABS: Blood Urea Nitrogen 27 mg/dl (7-17); Calcium 9.7 mg/dl (8.4-10.2); Carbon Dioxide 21 mmol/L (22-30); Chloride 110 mmol/L (98-107); Estimated Creatinine Clearance 71 ml/min; Glucose 110 mg/dl (70-99); Potassium 4.5 mmol/L (3.5-5.1); Sodium 143 mmol/L (135-145); eGFR > 60.00
[2024-11-05] VITALS (12 sets, daily range): BP systolic 72–174; BP diastolic 50–124; BMI 48.3
[2024-11-05] MEDS: NORMOSOL-R/PLASMALYTE-A 1000 IV (11:32)
[2024-11-05 13:45] LABS: Glucose - Point of Care 115 mg/dl (70-99)
== END 2024-11-05 15:45 | disposition home or self-care (01) ==
LOC: SDS 06:37
PROVIDERS: ATTENDING PHYSICIAN Orthopaedic Surgery Hand Surgery
DX: S52.552A Other extraarticular fracture of lower end of left radius, initial encounter for closed fracture (principal); W19.XXXA Unspecified fall, initial encounter
CPT/HCPCS: 25607; 36415; 80048; 82962; 85025; 93005; C1713